=== PATIENT | female | born 1935 | race Caucasian/White ===

== ENCOUNTER 2019-06-20 11:50 | Day surgery (SDC) | payer MEDICARE, BC ==
[~2019-06-20] VITALS: Ht 162.6 cm; Wt 74.8 kg
[~2019-06-20 11:50] MED LIST: ADVAIR 250/28 DISKU1 IH; ADVIL 200MG TA200 MG PO; ALBUTEROL SULFAT3 M3 IH; ALBUTEROL0.83 MG/ML IH; ALLEGRA 180MG180 MG PO; ALLEGRA60 MG PO; ASPIR-LOW81 MG PO; ASPIRIN E.C. 8181 MG PO; ASTELIN NASAL S34 ML NS; AVELOX 400MG T400 MG PO; CALCIUM CITRAT200 MG PO; CARAFATE 1GM1 G PO; CARDIZEM CD120 MG PO; CETIRIZINE; CIPRO 500MG TA500 MG PO; CITRACAL + D 251 TAB PO; CITRACAL + D CA1 TAB PO; COLACE 100100 MG/CAP PO; COQ1060 MG PO; DIFLUCAN 100MG100 MG PO; DIOVAN HCT 25 M1 TA1 PO; DIOVAN HCT 25 M1 TAB PO; DIOVAN160 MG PO; DUONEB 3 MG/3 ML3 ML IH; EPA FISH OIL1 SGL; FENTANYL 12MCG TD; FENTANYL 12MCG TOP; FENTANYL 25 MCG TD; FENTANYL 25 MCG TOP; FEXOFENADINE180 MG PO; FISH OIL CONC1000 MG PO; FISH OIL1 IU PO; FISH OIL1000 MG PO; FLAGYL500 MG PO; FLEXERIL 1010 MG/TAB PO; FLEXERIL10 MG PO; FLONASE NASAL S16 GM NS; GABAPENTIN; GARLIC PO; GARLIC SUPPLEM300 MG PO; GENTAMICIN180 MG/501 NS; GLUCOSAMINE & C1 CA1 PO; GLUCOSAMINE & C1 CA2 PO; GLUCOSAMINE & C1 TA1 PO; GLUCOSAMINE/CHONDROI PO; HCTZ 25MG25 MG PO; HYDROXYCHLOROQ200 M1 PO; L-LYSINE MONOHY1 POW PO; L-LYSINE PO; L-LYSINE500 M1; L-LYSINE500 MG PO; LASIX 20MG TABL20 MG PO; LEVAQUIN 750MG750 M1 PO; LORTAB 7.5/5001 TAB PO; LOVENOX100 MG/ML SC; MUCINEX 60600 MG/TA1 PO; MVI PO; NATURAL E400 IU PO; NEURONTIN300 MG/CAP PO; NORCO 325 MG-7.1 TAB PO; NORVASC 5MG5 MG/TAB PO; OXYCODONE5 MG PO; PLAQUENIL 200M200 MG PO; PLAQUENIL PO; PRAVACHOL 40MG40 MG PO; PREDNISONE 5MG5 MG PO; PREDNISONE20 MG; PREDNISONE20 MG PO; PREVACID 30MG30 M1 PO; PREVACID 30MG30 MG PO; PROLIA60 MG/ML SQ; PROVENTIL0.09 MG/A1 IH; PULMICORT0.5 MG/21 IH; RT ADVAIR HFA 1112 G IH; RT ADVAIR HFA 2312 G IH; SEE LIST; SENOKOT8.6 MG PO; SINGULAIR 110 MG/TAB PO; SINGULAIR10 MG PO; SPIRIVA RE2.5 MCG/Ac IH; SPIRIVA18 MCG IH; STRESS TABLETS1 TAB PO; TOPROL XL 25MG25 MG PO; TRAMADOL50 MG PO; ULTRAM 50MG TAB50 MG PO; ULTRAM100 MG PO; VALTREX1 GM PO; VITAMIN B-6 PO; VITAMIN B-650 MG PO; VITAMIN B650 MG PO; VITAMIN D PO; VITAMIN D50000 IU PO; VITAMIN E-400200 IU PO; VITAMIN E1000 U/CAP PO; VITAMIN E28000 IU TP; VOLTAREN GEL 1%1 TU TP; WOMEN'S DAILY1 TAB PO; XARELTO10 MG PO; ZITHROMAX500 M2 PO; [UNRECOGNIZED DRUG - OTHER] PO; unknown meds
[2019-06-20] MEDS ORDERED: NEURONTIN600 MG/TAB PO (12:08)
[2019-06-20] MEDS ORDERED: LYSINE 500500 MG/TAB (12:09)
[2019-06-20 12:41] VITALS: BP 150/63; PULSE 90; TEMP 98
[2019-06-20 14:30] VITALS: BP 147/67; PULSE 95; TEMP 98.5
[2019-06-20 14:45] VITALS: BP 136/66; PULSE 84
[2019-06-20 15:00] VITALS: BP 149/65; PULSE 82
[2019-06-20 15:15] VITALS: BP 148/64; PULSE 84
== END 2019-06-20 16:10 | disposition home or self-care (01) ==
LOC: SDCO 11:50
DX: K31.7 Polyp of stomach and duodenum (principal); K22.10 Ulcer of esophagus without bleeding; K21.0 Gastro-esophageal reflux disease with esophagitis; K22.8 Other specified diseases of esophagus; K29.70 Gastritis, unspecified, without bleeding; G89.29 Other chronic pain; I10 Essential (primary) hypertension; J45.909 Unspecified asthma, uncomplicated; G47.33 Obstructive sleep apnea (adult) (pediatric); Z90.710 Acquired absence of both cervix and uterus; Z96.642 Presence of left artificial hip joint; Z79.01 Long term (current) use of anticoagulants; Z86.711 Personal history of pulmonary embolism; Z86.718 Personal history of other venous thrombosis and embolism; Z88.0 Allergy status to penicillin; Z88.1 Allergy status to other antibiotic agents; Z88.5 Allergy status to narcotic agent
CPT/HCPCS: J2704; J7120

== ENCOUNTER 2020-02-11 15:23 | Emergency (ER) | payer MEDICARE, BC ==
[~2020-02-11] VITALS: Ht 157.5 cm; Wt 73.6 kg
[~2020-02-11 15:23] MED LIST changes: +LYSINE 500500 MG/TAB; +NEURONTIN600 MG/TAB PO
[2020-02-11 18:07] LABS: HEMOGLOBIN 10.4 g/dl (12.5-16.0); MEAN CELL VOLUME 85 fl (80.0-100.0); MEAN CORPUSCULAR HEMOGLOBIN 28 pg (27.0-31.0); MEAN CORPUSCULAR HGB CONC 33 g/dl (33.0-37.0); MEAN PLATELET VOLUME 9.6 fl (7.4-10.4); PLATELET COUNT 207 K/mm3 (130-400); RED BLOOD COUNT 3.67 M/mm3 (4.10-5.30); REDCELL DISTRIBUTION WIDTH-CV 14.3 % (11.5-14.5)
[2020-02-11 18:19] LABS: ALBUMIN 3.4 gm/dL (3.5-5.0); BILIRUBIN,TOTAL 0.5 mg/dL (0.0-1.0); C-REACTIVE PROTEIN 4.9 mg/dL (0.0-0.9); CALCIUM 8.4 mg/dL (8.4-10.2); CREATININE, serum 0.79 (0.52-1.25); POTASSIUM 4.1 mmol/L (3.4-5.0); TOTAL PROTEIN 6.4 gm/dL (6.4-8.2)
[2020-02-11 18:37] LABS: HEMATOCRIT 31.3 % (37.0-47.0)
[2020-02-11 19:22] LABS: COLLECTION METHOD CLEAN CATCH
[2020-02-11 19:27] VITALS: TEMP 99.1
[2020-02-11 19:28] LABS: BAND 5 % (0-10); HYPOCHROMIA 1+; LYMPHOCYTE 9 % (20.0-51.0); NEUTROPHILS 77 % (42.0-75.2); PLATELET ESTIMATE NORMAL (NORMAL)
[2020-02-11 19:36] LABS: PH 7 (5-8); SQUAMOUS EPITHELIAL 0-2 /hpf; URINE APPEARANCE Clear; URINE BACTERIA None Seen /hpf; URINE BILIRUBIN Negative (NEGATIVE); URINE BLOOD 1+ (NEGATIVE); URINE COLOR Yellow; URINE GLUCOSE Negative (NEGATIVE); URINE KETONE Negative (NEGATIVE); URINE LEUKOCYTE ESTERASE Negative (NEGATIVE); URINE NITRATE Negative (NEGATIVE); URINE PROTEIN(semi-quant) 1+ (NEGATIVE); URINE RBC 0-2 /hpf; URINE UROBILINOGEN Negative (NEGATIVE)
[2020-02-11 21:35] VITALS: BP 125/84; PULSE 78
== END 2020-02-11 21:35 | disposition home or self-care (01) ==
LOC: COL.ER 15:23
PROVIDERS: Family Medicine
DX: U07.1 COVID-19 (principal); J45.909 Unspecified asthma, uncomplicated; M32.9 Systemic lupus erythematosus, unspecified; Z88.0 Allergy status to penicillin; Z88.1 Allergy status to other antibiotic agents; Z88.5 Allergy status to narcotic agent; Z86.718 Personal history of other venous thrombosis and embolism; Z79.01 Long term (current) use of anticoagulants; Z79.810 Long term (current) use of selective estrogen receptor modulators (SERMs); Z79.899 Other long term (current) drug therapy
CPT/HCPCS: J1100; J7120

== ENCOUNTER 2020-02-20 11:04 | Emergency (ER) | payer MEDICARE, BC ==
[~2020-02-20] VITALS: Ht 157.5 cm; Wt 73.6 kg
[2020-02-20 12:10] LABS: GRAN # 2.1 (1.4-6.5); GRAN % 66.5 % (42.2-75.2); HEMOGLOBIN 11.9 g/dl (12.5-16.0); LYMPH # 0.6 (1.2-3.4); LYMPH % 19.1 % (20.0-51.0); MEAN CELL VOLUME 85 fl (80.0-100.0); MEAN CORPUSCULAR HEMOGLOBIN 29 pg (27.0-31.0); MEAN CORPUSCULAR HGB CONC 34 g/dl (33.0-37.0); MEAN PLATELET VOLUME 9.3 fl (7.4-10.4); MONO # 0.5 (0.1-0.6); MONO % 14.1 % (1.7-9.3); PLATELET COUNT 217 K/mm3 (130-400); RED BLOOD COUNT 4.18 M/mm3 (4.10-5.30); REDCELL DISTRIBUTION WIDTH-CV 14.2 % (11.5-14.5)
[2020-02-20 12:12] LABS: HEMATOCRIT 35.4 % (37.0-47.0)
[2020-02-20 12:27] LABS: ALBUMIN 4.2 gm/dL (3.5-5.0); BILIRUBIN,TOTAL 0.5 mg/dL (0.0-1.0); CALCIUM 8.8 mg/dL (8.4-10.2); CREATININE, serum 0.7 (0.52-1.25); POTASSIUM 3.7 mmol/L (3.4-5.0); TOTAL PROTEIN 7.4 gm/dL (6.4-8.2)
[2020-02-20 12:37] LABS: TROPONIN-I 0.023 ng/mL (0.000-0.035)
[2020-02-20 13:45] VITALS: BP 127/69; PULSE 71; TEMP 99
== END 2020-02-20 13:45 | disposition home or self-care (01) ==
LOC: COL.ER 11:04
PROVIDERS: Emergency Medicine
DX: U07.1 COVID-19 (principal); I10 Essential (primary) hypertension; K21.9 Gastro-esophageal reflux disease without esophagitis; Z88.0 Allergy status to penicillin; Z88.6 Allergy status to analgesic agent; Z79.01 Long term (current) use of anticoagulants
CPT/HCPCS: J1100; J2405; J7030

== ENCOUNTER → 2020-05-07 | Outpatient (CLI) | payer MEDICARE, BC | LOC: ZCOL.LAB 21:52 | DX: Z01.89 Encounter for other specified special examinations (principal) ==

== ENCOUNTER 2020-06-16 10:51 | Day surgery (SDC) | payer MEDICARE, BC ==
[~2020-06-16] VITALS: Ht 157.5 cm; Wt 67.7 kg
[2020-06-16] MEDS ORDERED: PROTONIX 40MG T40 MG PO (11:32)
[2020-06-16] MEDS ORDERED: ONE-A-DAY ESSE1 EACH PO (11:33)
[2020-06-16 11:55] VITALS: BP 153/70; PULSE 94; TEMP 98.6
[2020-06-16 13:17] VITALS: BP 134/73; PULSE 80; TEMP 97.9
--- NOTE | 2020-06-16 13:17 | NUR ---
Patient arrives to [facility] post-procedure. She is sleepy, but awake and speaks with staff. She ambulates to the chair in her room with standby assist. Monitoring is applied -VSS and WNL on room air. Her is at the bedside. She denies pain, nausea, needs. She is offered and receives water, jello, and pudding. Warm blankets are applied for comfort. Call light is within reach.
--- NOTE | 2020-06-16 13:23 | NUR ---
Dr. Kennedy comes to the bedside and speaks with the patient and her spouse.
[2020-06-16 13:30] VITALS: BP 120/74; PULSE 82
--- NOTE | 2020-06-16 13:30 | NUR ---
Patient is resting comfortably in her room. She is sipping water. She is tolerating PO well. VSS on room air.
[2020-06-16 13:45] VITALS: BP 142/67; PULSE 84
--- NOTE | 2020-06-16 14:26 | NUR ---
Patient has met discharge criteria. VSS on room air. She has ate pudding and jello, and drank water. She denies pain or nausea. PIV is removed with catheter intact and hemostasis achieved. Discharge instructions are discussed. She denies any questions and verbalizes understanding. Staff assists her to change to her clothing. She is escorted to the exit via wheelchair by staff, to the care of her , who drives her home in a private vehicle at 1426.
== END 2020-06-16 14:26 | disposition home or self-care (01) ==
LOC: SDCO 10:51
DX: K22.10 Ulcer of esophagus without bleeding (principal); K29.60 Other gastritis without bleeding; K31.7 Polyp of stomach and duodenum; K21.00 Gastro-esophageal reflux disease with esophagitis, without bleeding; D12.2 Benign neoplasm of ascending colon; K44.9 Diaphragmatic hernia without obstruction or gangrene; R19.7 Diarrhea, unspecified; R19.4 Change in bowel habit; R63.4 Abnormal weight loss; K57.30 Diverticulosis of large intestine without perforation or abscess without bleeding; I48.91 Unspecified atrial fibrillation; I12.9 Hypertensive chronic kidney disease with stage 1 through stage 4 chronic kidney disease, or unspecified chronic kidney disease; I73.00 Raynaud's syndrome without gangrene; D68.61 Antiphospholipid syndrome; D47.2 Monoclonal gammopathy; N18.32 Chronic kidney disease, stage 3b; G89.29 Other chronic pain; E03.9 Hypothyroidism, unspecified; M19.90 Unspecified osteoarthritis, unspecified site; G47.33 Obstructive sleep apnea (adult) (pediatric); Z20.822 Contact with and (suspected) exposure to COVID-19; Z88.0 Allergy status to penicillin; Z88.1 Allergy status to other antibiotic agents; Z88.5 Allergy status to narcotic agent; Z79.899 Other long term (current) drug therapy
CPT/HCPCS: J2704; J3010; J7120

== ENCOUNTER 2021-08-20 11:06 | Day surgery (SDC) | payer MEDICARE, BC ==
[~2021-08-20] VITALS: Ht 157.5 cm; Wt 72.6 kg
[~2021-08-20 11:06] MED LIST changes: +ONE-A-DAY ESSE1 EACH PO; +PROTONIX 40MG T40 MG PO
[2021-08-20] MEDS ORDERED: MUCINEX 60600 MG/TA1 PO (11:41)
[2021-08-20 12:21] VITALS: BP 136/73; PULSE 85; TEMP 98.4
[2021-08-20 12:50] VITALS: BP 120/57; PULSE 89; TEMP 98.1
--- NOTE | 2021-08-20 13:03 | NUR ---
1250 PATIENT ARRIVES TO [facility] [place] [facility]. AMBULATED TO CHAIR WITH 1:1 ASSIST. VSS. WARM BLANKET GIVEN FOR COMFORT. PATIENT AT CHAIRSIDE. 1255 DR. GUILLEN IN ROOM SPEAKING WITH PATIENT. PATIENT TAKING JUICE AND MUFFIN. TOLERATING WELL. DENIES COMPLAINT.
[2021-08-20 13:05] VITALS: BP 123/62; PULSE 87
[2021-08-20 13:20] VITALS: BP 131/61; PULSE 86
== END 2021-08-20 13:47 | disposition home or self-care (01) ==
LOC: SDCO 11:06
DX: K29.60 Other gastritis without bleeding (principal); K31.7 Polyp of stomach and duodenum; K20.90 Esophagitis, unspecified without bleeding; R13.10 Dysphagia, unspecified; K44.9 Diaphragmatic hernia without obstruction or gangrene; G47.33 Obstructive sleep apnea (adult) (pediatric); M34.89 Other systemic sclerosis; G89.29 Other chronic pain; D47.2 Monoclonal gammopathy; I73.00 Raynaud's syndrome without gangrene; I12.9 Hypertensive chronic kidney disease with stage 1 through stage 4 chronic kidney disease, or unspecified chronic kidney disease; N18.30 Chronic kidney disease, stage 3 unspecified; M19.90 Unspecified osteoarthritis, unspecified site; J45.909 Unspecified asthma, uncomplicated; D68.61 Antiphospholipid syndrome; M79.18 Myalgia, other site; M81.0 Age-related osteoporosis without current pathological fracture; F25.9 Schizoaffective disorder, unspecified; Z79.899 Other long term (current) drug therapy; Z99.89 Dependence on other enabling machines and devices; Z86.16 Personal history of COVID-19; Z79.01 Long term (current) use of anticoagulants; Z79.51 Long term (current) use of inhaled steroids
CPT/HCPCS: J2704; J7030